=== PATIENT | female | born 1960 | race Caucasian/White ===

== ENCOUNTER → 2017-03-17 18:17 | Outpatient (CLI) | payer MEDICARE ==
[2016-04-14 07:06] VITALS: BMI 45.0
[~2017-03-17 18:17] MED LIST: AMITRIPTYLINE100 MG PO; BYSTOLIC10 MG PO; CARAFATE1 G PO; DONEPEZIL HCL10 M1 PO; GAVISCON LIQUI355 ML PO; KEPPRA750 MG PO; LAMICTAL200 MG PO; MYLANTA / MAALO30 ML PO; PLAVIX75 MG PO; PRILOSEC20 MG PO; REGLAN10 MG PO; SINGULAIR10 MG PO; VIMPAT200 MG PO; VYTORIN 10-801 UDTAB PO; ZANAFLEX4 MG PO; ZANTAC150 MG PO
[2017-03-17 18:53] LABS: BASOPHILS 0.4 % (0-2); EOSINOPHILS 0.6 % (0-7); HEMATOCRIT 46.8 % (36.0-48.0); IMMATURE GRANULOCYTES 0.3 % (0-5); LYMPHOCYTES 32.1 % (15-50); MCH 30.1 pg (26.0-34.0); MCHC 34.2 g/dL (31.0-37.0); MCV 88.1 fL (80.0-100.0); MEAN PLATELET VOLUME 11.5 fL (7.4-10.4); MONOCYTES 9.5 % (2-11); NEUTROPHILS 57.1 % (40-80); PLATELET COUNT 180 10x3/uL (130-400); RBC 5.31 10x6/uL (4.00-5.40); RDW 13.6 % (11.5-14.5); WBC 7.8 10x3/uL (4.8-10.8)
[2017-03-17 19:03] LABS: % SATURATION 23 % (15-55); IRON 78 ug/dl (35-150); TOTAL IRON BIND CAPACITY 329 ug/dl (260-445); UNSAT IRON BIND CAPACITY 251 ug/dl (150-375)
== END | disposition home or self-care (01) ==
LOC: D.LABREF 18:17
PROVIDERS: Internal Medicine Cardiovascular Disease
DX: I25.10 Atherosclerotic heart disease of native coronary artery without angina pectoris (principal); D64.9 Anemia, unspecified

== ENCOUNTER 2018-05-03 17:36 | Emergency (ER) | payer MEDICARE ==
[~2018-05-03] VITALS: Ht 165.1 cm; Wt 116.8 kg
[2018-05-03 17:51] VITALS: Ht 165.1 cm; Wt 116.8 kg
[2018-05-03 20:39] LABS: BASOPHILS 0.1 % (0-2); EOSINOPHILS 2.8 % (0-7); HEMATOCRIT 39.8 % (36.0-48.0); HEMOGLOBIN 13.4 g/dL (12-16); IMMATURE GRANULOCYTES 0.3 % (0-5); LYMPHOCYTES 18.4 % (15-50); MCH 29.5 pg (26.0-34.0); MCHC 33.7 g/dL (31.0-37.0); MCV 87.5 fL (80.0-100.0); MEAN PLATELET VOLUME 10.9 fL (7.4-10.4); MONOCYTES 10.4 % (2-11); PLATELET COUNT 127 10x3/uL (130-400); RBC 4.55 10x6/uL (4.00-5.40); RDW 13.9 % (11.5-14.5); WBC 12.4 10x3/uL (4.8-10.8)
[2018-05-03 20:47] LABS: INR 1.12 (0.85-1.17); PROTIME 13.9 SECONDS (11.6-15.0)
[2018-05-03 20:51] LABS: ALBUMIN 3.9 g/dL (3.4-5.0); ALKALINE PHOSPHATASE 91 U/L (46-116); ALT (SGPT) 36 U/L (10-68); BILIRUBIN - TOTAL 0.88 mg/dL (0.2-1.3); CALC OSMOLALITY 279 mosm/kg (275-300); CALCIUM 8.9 mg/dL (8.5-10.1); CARBON DIOXIDE 29.3 mmol/L (21.0-32.0); CHLORIDE - SERUM 105 mmol/L (98-107); GLUCOSE 95 mg/dL (74-106); POTASSIUM - SERUM 4.1 mmol/L (3.5-5.1); PROTEIN - SERUM 6.6 g/dL (6.4-8.2); SODIUM 141 mmol/L (136-145); UREA NITROGEN 11 mg/dL (7-18); eGFR NON AFRICAN AMERICAN 61 mL/min (90-120)
[2018-05-03 21:00] LABS: CKMB 0.4 U/L (0.0-3.6); CREATINE KINASE 85 UL (21-215)
[2018-05-03] MEDS ORDERED: VALIUM 2 MG TAB2 MG PO (21:24)
[2018-05-03] MEDS ORDERED: ULTRAM50 MG PO (21:24)
[2018-05-03 21:34] VITALS: BP 96/56
== END 2018-05-03 21:34 | disposition home or self-care (01) ==
LOC: D.ER 17:36
PROVIDERS: Family Medicine
DX: S30.1XXA Contusion of abdominal wall, initial encounter (principal); S80.12XA Contusion of left lower leg, initial encounter; V43.52XA Car driver injured in collision with other type car in traffic accident, initial encounter; Y93.89 Activity, other specified; Y92.410 Unspecified street and highway as the place of occurrence of the external cause; S29.011A Strain of muscle and tendon of front wall of thorax, initial encounter; M62.838 Other muscle spasm; I10 Essential (primary) hypertension; K21.9 Gastro-esophageal reflux disease without esophagitis

== ENCOUNTER → 2021-03-01 08:31 | Outpatient (CLI) | payer MEDICARE ==
[2018-05-03 17:51] VITALS: BMI 42.8
[~2021-03-01 08:31] MED LIST changes: +ULTRAM50 MG PO; +VALIUM 2 MG TAB2 MG PO
== END | disposition home or self-care (01) ==
LOC: D.HCCARDIO 08:31
PROVIDERS: ATTEND Internal Medicine Cardiovascular Disease
DX: I25.119 Atherosclerotic heart disease of native coronary artery with unspecified angina pectoris (principal)

== ENCOUNTER 2021-03-04 06:40 | Day surgery (SDC) | payer MEDICARE ==
[~2021-03-04] VITALS: Ht 165.1 cm; Wt 123.4 kg
--- NOTE | ~2021-03-04 | HEMODYNAMI ---
PATIENT:JYOTI GONZALEZ MEDICAL RECORD: [id number] : 62 LOCATION:D.CAT ADMISSION DATE: 03/04/21 Generatedon:19:09 Patient name: JYOTI GONZALEZ Patient #: [id number] SSN: [id number] : 1960 Date of study: 03/04/2021 Page: Of Hemodynamic Procedure Report Patient Data Patient Demographics Procedure consent was obtained First Name: JYOTI Gender: Female Last Name: CARLOS : 1960 [facility] Initial: MALDONADO Age: 60 year(s) Patient #: [id number] Race: SSN: [id number] Additional ID: [id number] Contact details Address: [address] [place] [address] [place] [facility] [place] Zip code: [address] Past Medical History Performed procedures and imaging results Date Procedure Procedure Results Comments 03/01/2021 Stress testing Positive->Intermediate with SPECT MPI risk Allergies Allergen Reaction Date Comments Reported Other allergy 05/27/2015 Codeine, Percocet, PCN, Tylox, Morphine, Tylenol Other allergy 03/04/2021 pcn, codeine, morphine, hydrocodone, oxycodone, tylenol Admission Admission Data Admission Date: 03/04/2021 Admission Time: 6:40 Arrival Date: 04/04/2021 Arrival Time: 0:00 Admit Source: Other Height (in.): 64.96 BSA: 2.25 (m2) Height (cm.): 165 BMI: 45.18 (kg/m2) Weight (lbs.): 271.17 Weight (kg.): 123 Lab Results Lab Result Date: 03/04/2021 Lab Result Time: 0:00 Biochemistry Name Units Result Min Max BUN mg/dl 18 --(---*)-- 7 18 Creatinine mg/dl 1 --(--*-)-- 0.6 1.3 eGFR ml/min 60 *-(----)-- 90 120 NONAFRICAN Procedure Procedure Types Cath Procedure Diagnostic Procedure [facility] Coronaries w/Grafts Sedation Charges Moderate Sedation 25-39 minutes Procedure Description Procedure Date Procedure Date: 03/04/2021 Procedure Start Time: 8:45 Procedure End Time: 9:05 Procedure Staff Name Function Russell Chiu MD Performing Physician Сергей Robison RN Nurse Melo Diaz RN Nurse Mirian Cox RT Scrub Yuly Echeverria RT Monitor Procedure Data Cath Procedure Fluoroscopy Diagnostic fluoroscopy Total fluoroscopy Time: 5.1 time: 5.1 min min Diagnostic fluoroscopy Total fluoroscopy dose: 544 dose: 544 mGy mGy Contrast Material Contrast Material Type Amount (ml) Isovue 370 68 Entry Location Entry Primary Successful Side Size Upsize Upsize Entry Closure Succes sful Closure Location (Fr) 1 (Fr) 2 (Fr) Remarks Device Remarks Femoral Right 5 Fr Exoseal artery Estimated blood loss: 5 ml Diagnostic catheters Device Type Used For End Catheter Placement MULTIPACK JL 4.0 5Fr Procedure catheter MULTIPACK 3DRC 5Fr Procedure catheter DIAGNOSTIC IMT 5Fr Procedure Catheter ([id number]) MULTIPACK Pigtail 5 Fr Procedure catheter Procedure Complications No complications Procedure Medications Medication Administration Route Dosage Oxygen etCO2 Nasal cannula 2 l/min Lidocaine 2% added to field 20 Heparin Flush Bag added to field 2 bags (1000units/500ml NS) 0.9% NaCl I.V. 100 ml/hr Fentanyl I.V. 50 mcg Versed I.V. 1 mg Versed I.V. 1 mg Fentanyl I.V. 50 mcg Fentanyl I.V. 50 mcg Versed I.V. 1 mg Versed I.V. 1 mg Fentanyl I.V. 50 mcg Hemodynamics Rest BSA: 2.25 (m2) O2 Consumption: Estimated: 212.22 (ml/min) O2 Consumption indexed : Estimated:94.32 (ml/min/m) Heart Rate: 68 (bpm) Pressure Samples Time Site Value (mmHg) Purpose Heart Use Rate(bpm) 9:01 LV 90/6,12 Snapshot 73 9:02 AO 93/45(66) Pullback 72 9:02 LV 86/8,-3 Pullback 72 Gradients Valve Time Site 1 Site 2 Mean SEP/DFP Peak To Heart Use (mmHg) (sec/min) Peak Rate (mmHg) (bpm) Aortic 9:02 LV AO 0 4 0 72 86/8,-3 93/45(66) Calculations Valve P-P Mean Valve Index Valve Source Name Gradient Area Flow (cm2) Aortic 0 0 0 0 Snapshots Pre Cath Intra NCS Post Cath Vital Signs Time Heart Resp SPO2 etCO2 NIBP (mmHg) Rhythm Pain Sedation Rate (ipm) (%) (mmHg) Status Level (bpm) 8:17:18 69 17 97 21.2 124/72(90) NSR 0 (11) 10(A) , No pain 8:21:36 70 12 99 36.4 124/74(103) NSR 0 (11) 10(A) , No pain 8:25:54 67 12 96 22 110/50(91) NSR 0 (11) 10(A) , No pain 8:30:08 68 11 96 28.8 124/69(96) NSR 0 (11) 9(A) , No pain 8:34:24 70 11 96 42.5 134/84(113) NSR 0 (11) 9(A) , No pain 8:38:40 71 12 97 0.7 127/72(99) NSR 0 (11) 9(A) , No pain 8:42:52 71 13 97 22.7 116/64(89) NSR 0 (11) 9(A) , No pain 8:47:10 70 12 97 17.4 107/66(85) NSR 0 (11) 9(A) , No pain 8:51:24 70 13 97 13.6 122/68(90) NSR 0 (11) 9(A) , No pain 8:55:38 70 12 97 29.6 129/78(114) NSR 0 (11) 9(A) , No pain 8:59:58 72 13 97 27.3 108/62(88) NSR 0 (11) 9(A) , No pain 9:04:12 72 12 97 23.5 120/68(82) NSR 0 (11) 9(A) , No pain 9:08:28 75 15 98 41.7 126/77(107) NSR 0 (11) 10(A) , No pain Medications Time Medication Route Dose Verified Delivered Reason Notes Effe ctiveness by by 8:15:27 Oxygen etCO2 2 Russell Melo used for Nasal l/min Aram Diaz vegetable preparer cannula 8:15:41 Lidocaine 2% added 20ml Russell Russell for local to vial Aram Chiu MD anesthetic field 8:15:47 Heparin Flush added 2 Russell Russell used for Bag to bags Aram Chiu MD procedure (1000units/500ml field NS) 8:15:58 0.9% NaCl I.V. 100 Russell Russell Per ml/hr Aram Chiu MD physician 8:28:40 Fentanyl I.V. 50 Russell Melo for mcg Aram Diaz RN sedation 8:28:48 Versed I.V. 1 mg Russell Melo for Aram Diaz RN sedation 8:30:54 Versed I.V. 1 mg Russell Melo for Aram Diaz RN sedation 8:31:03 Fentanyl I.V. 50 Russell Melo for mcg Aram Diaz RN sedation 8:34:27 Fentanyl I.V. 50 Russell Melo for mcg Aram Diaz RN sedation 8:34:30 Versed I.V. 1 mg Russell Melo for Aram Diaz RN sedation 8:43:48 Versed I.V. 1 mg Russell Melo for Aram Diaz RN sedation 8:43:52 Fentanyl I.V. 50 Russell Melo for mcg Aram Diaz RN sedation Procedure Log Time Note 7:01:27 Informed consent obtained and on chart 7:01:46 Diagnostic Cath Status : Elective 7:01:57 Admit Source: Other 7:02:00 ACC Patient presents with Stable Angina CCS Anginal Class 2--Slight limitation of ordinary activity. 7:02:03 Procedure Status Elective Heart Cath (OP). 7:02:05 Time tracking: Regular hours (M-F 7:00 - 5:00) 7:02:09 Plan of Care:Hemodynamics will remain stable., Cardiac rhythm will remain stable., Comfort level will be maintained., Respiratory function will remain adequate., Patient/ family verbilizes understanding of procedure., Procedure tolerated without complication., Recovers from procedure without complications.. 7:05:56 Stress Test: yes; abnormal LATERAL SEGMENTS 8:01:44 Patient allergic to Other allergypcn, codeine, morphine, hydrocodone, oxycodone, tylenol 8:01:51 Alarms reviewed by RHector Bowers 8:01:52 Sharps counted by scrub and verified by RHectorN. 8:02:02 H&P Date Dictated: 02/19/2021 Within 30 days and on chart.. 8:02:05 Family in waiting room. 8:02:06 Patient NPO since Midnight. 8:08:23 Сергей Robison RN sent for patient. Start room use. 8:13:04 Patient received from Pre/Post Procedure Room to CCL 1 Alert and oriented. Tansferred to table in Supine position. 8:13:05 Warm blankets applied, and stephanie hugger turned on for patient comfort. 8:13:05 Correct patient and procedure confirmed by team. 8:13:08 Pre-procedure instructions explained to patient. 8:13:09 Pre-op teaching completed and patient verbalized understanding. 8:13:13 Is the patient allergic to Iodine/contrast media? No. 8:13:14 Is patient on blood thinner?No 8:13:16 Patient diabetic? Yes. 8:13:17 If diabetic: On Metformin? Yes 8:13:43 If on Metformin: Last Dose? 03/02/2021 8:13:48 Previous problem with sedation/anesthesia? No ? 8:13:49 Snore? Yes 8:13:50 Sleep apnea? Yes 8:13:51 Deviated septum? No 8:13:56 Opens mouth fully? Yes 8:13:57 Sticks out tongue? Yes 8:14:01 Airway obstruction? Yes ASTHMA 8:14:04 Dentures? No ? 8:14:08 Pre procedure: right dorsailis pedis pulse 1+ Palpable, but thready & weak; easily obliterated 8:14:16 IV patent on arrival in left hand with 0.9% NaCl at O. 8:15:27 Oxygen 2 l/min etCO2 Nasal cannula was administered by Melo Diaz RN; used for procedure; Verbal order read back and verified. 8:15:41 Lidocaine 2% 20ml vial added to field was administered by Russell Chiu MD; for local anesthetic; Verbal order read back and verified. 8:15:47 Heparin Flush Bag (1000units/500ml NS) 2 bags added to field was administered by Russell Chiu MD; used for procedure; Verbal order read back and verified. 8:15:58 0.9% NaCl 100 ml/hr I.V. was administered by Russell Chiu MD; Per physician; Verbal order read back and verified. 8:16:06 Vital chart was started 8:16:13 Lab Result : BUN 18 mg/dl 8:16:14 Lab Result : eGFR NONAFRICAN 60 ml/min 8:16:14 Lab Result : Creatinine 1 mg/dl 8:16:16 Lab results completed and on chart. 8:16:20 Right groin area was prepped with chlora-prep and draped in sterile fashion 8:18:21 Patient Weight : 271.17 lbs 8:18:24 Patient Height : 64.96 inches 8:18:28 Arrival Date: 04/04/2021 12:00:00 AM 8:22:11 Baseline sample Acquired. 8:22:31 Patient pain scale 0/10 ?. 8:22:39 Use device set Femoral Dx 8:22:40 ACIST Syringe (81535) opened to sterile field. 8:22:41 Bag Decanter (2002S) opened to sterile field. 8:22:42 Medline Cath Pack ([id number]) opened to sterile field. 8:22:43 ACIST Hand Control (71772) opened to sterile field. 8:22:43 ACIST Manifold (21716) opened to sterile field. 8:22:44 DIAGNOSTIC Multipack 5Fr catheter set ([id number]) opened to sterile field. 8:22:46 SHEATH 5FR Freehold (SSS249) opened to sterile field. 8:22:46 EMERALD Guide Wire (626-693) opened to sterile field. 8:27:46 Tegaderm 4 x 4 (1626W) opened to sterile field. 8:27:51 --------ALL STOP TIME OUT------ 8:27:52 Final Timeout: patient, procedure, and site verified with staff and physician. All members of the team are in agreement. 8:27:54 Right groin site verified by team. 8:27:57 Fire Safety Assessment: A--An alcohol-based skin anteseptic being used preoperatively., C--Open oxygen or nitrous oxide is being used., D--An ESU, laser, or fiber-optic light is being used. 8:28:02 Physical assessment completed. ASA score P 2 - A patient with mild systemic disease as per Russell Chiu MD. 8:28:04 2) 60-89 Mildly reduced kidney function, and other findings (as for stage 1) point to kidney disease. 8:28:09 Maximum allowable contrast dose (3.7 X eGFR X 0.75)167 ml. 8:28:13 Sedation plan: IV Moderate Sedation Medication:Versed, Fentanyl 8:28:40 Fentanyl 50 mcg I.V. was administered by Melo Diaz RN; for sedation; Verbal order read back and verified. 8:28:48 Versed 1 mg I.V. was administered by Melo Diaz RN; for sedation; Verbal order read back and verified. 8:30:54 Versed 1 mg I.V. was administered by Melo Diaz RN; for sedation; Verbal order read back and verified. 8:31:03 Fentanyl 50 mcg I.V. was administered by Melo Diaz RN; for sedation; Verbal order read back and verified. 8:34:27 Fentanyl 50 mcg I.V. was administered by Melo Diaz RN; for sedation; Verbal order read back and verified. 8:34:30 Versed 1 mg I.V. was administered by Melo Diaz RN; for sedation; Verbal order read back and verified. 8:43:11 Procedure started. 8:43:11 Full Disclosure recording started 8:43:48 Versed 1 mg I.V. was administered by Melo Diaz RN; for sedation; Verbal order read back and verified. 8:43:52 Fentanyl 50 mcg I.V. was administered by Melo Diaz RN; for sedation; Verbal order read back and verified. 8:45:30 Local anesthetic to right femoral artery with Lidocaine 2% by Russell Chiu MD.INITIAL ACCESS ONLY 8:51:39 A 5 Fr sheath was inserted into the Right Femoral artery 8:52:29 A MULTIPACK JL 4.0 5Fr catheter was advanced over the wire and used for Procedure. 8:52:53 LCA angiography performed. 8:52:56 Injector settings: Ml/sec: 3, Volume: 6, 8:54:07 Catheter exchanged over wire. 8:55:01 A MULTIPACK 3DRC 5Fr catheter was advanced over the wire and used for Procedure. 8:55:37 RCA angiography performed. 8:55:39 Injector settings: Ml/sec: 3, Volume: 6, 8:55:53 ACCDominant side:Right 8:55:56 Catheter exchanged over wire. 8:57:36 A DIAGNOSTIC IMT 5Fr Catheter ([id number]) was advanced over the wire and used for Procedure. 8:58:55 RODRIGUES to LAD angiography performed. 8:58:58 Injector settings: Ml/sec: 3, Volume: 6, 8:59:52 Catheter exchanged over wire. 9:00:51 A MULTIPACK Pigtail 5 Fr catheter was advanced over the wire and used for Procedure. 9:01:02 LV gram done using ALAS 9:01:30 LV hemodynamics recorded. 9:01:46 EF : 50 % 9:01:55 Catheter removed. 9:02:13 EXOSEAL 5Fr (EX500) opened to sterile field. 9:02:42 Sheath removed intact; hemostasis achieved with Exoseal to the Right Femoral artery. 9:03:05 Fluoroscopy time 05.10 minutes. 9:03:09 Fluoroscopy dose: 544 mGy 9:03:09 Flurop Dose total: 544 9:03:16 Dose Area Product 03897 mGy/cm. 9:03:22 Contrast amount:Isovue 370 68ml. 9:03:24 Maximum allowable dose exceeded? No. 9:03:25 Sharps counted by scrub and verified by R.N. 9:04:16 Procedure ended.(Physican Out) 9:04:24 Post-op/insertion site Right Femoral artery dressed using a 4 x 4 and Tegaderm. 9:04:29 Post right femoral artery:stable, soft, clean and dry 9:04:31 Post Procedure Pulses reassessed and unchanged 9:04:33 Post procedure: right dorsailis pedis pulse 1+ Palpable, but thready & weak; easily obliterated. 9:04:35 Post-procedure physical assessment completed. ASA score P 2 - A patient with mild systemic disease as per Russell Chiu MD. 9:04:38 Post procedure rhythm: unchanged. 9:04:40 Estimated blood loss: 5 ml 9:04:42 Post procedure instruction explained to patient.Patient verbalizes understanding. 9:04:42 Patient needs reinforcement of post procedure teaching. 9:05:21 Procedure type changed to Cath procedure, Diagnostic procedure, LHC, Coronaries w/Grafts, Sedation Charges, Moderate Sedation 25-39 minutes 9:05:35 Procedure and supply charges have been captured, reviewed, submitted and are correct. 9:05:40 Procedure Complication : No complications 9:05:44 [facility] Findings: mild to moderate CAD (<70%) 9:05:47 Operative report dictated upon procedure completion. 9:05:48 See physician's report for complete and final results. 9:05:49 Report given to Pre/Post Procedure Room. 9:05:53 Patient transfered to Pre/Post Procedure Room with Stretcher. 9:05:55 Procedure ended. 9:05:55 Full Disclosure recording stopped 9:05:58 End room use (Document Last) 9:05:58 End room use (Document Last) 9:06:14 End room use (Document Last) 9:06:29 End room use (Document Last) 9:08:34 Vital chart was stopped Device Usage Item Name Manufacture Quantity Catalog Number Hospital Part Current Minim al Lot# / Charge Number Stock Stock Serial# Code ACIST Acist 1 10256 021755 124307 536247 20 Syringe Medical (04789) Systems Inc Bag Microtek 1 012952 92919 428562 5 Decanter Medical Inc. () Medline Medline 1 [id number] 935937 36162 173690 5 Cath Pack ([id number]) ACIST Hand Acist 1 53310 233033 687939 253220 5 Control Medical (62054) Systems Inc ACIST Acist 1 76867 153973 086841 539810 5 Manifold Medical (54549) Systems Inc DIAGNOSTIC Cardinal 1 [id number] 661085 01138 575940 30 Multipack Health 5Fr catheter set (IM1017) SHEATH 5FR Terumo 1 [id number] 236934 503115 660611 5 Freehold ([id number]) EMERALD Cardinal 1 502-455 754368 086365 519034 5 Guide Wire Health (502455) Tegaderm 4 3M 1 1626W 219473 652738 024908 5 x 4 (1626W) MULTIPACK Cardinal 1 625395 5 JL 4.0 5Fr Health catheter MULTIPACK Cardinal 1 122387 5 3DRC 5Fr Health catheter DIAGNOSTIC [place] 1 [id number] 933730 437787 27224 5 IMT 5Fr Scientific Catheter ([id number]) MULTIPACK Cardinal 1 088695 5 Pigtail 5 Health Fr catheter EXOSEAL 5Fr Cardinal 1 EX500 535166 838137 762676 10 (EX500) Health Signature Audit [place] Stage Time Signature Unsigned Intra-Procedure 03/04/2021 Yuly Echeverria 9:06:15 AM RT(R) Intra-Procedure 03/04/2021 Сергей Robison RN 9:06:29 AM Intra-Procedure 03/04/2021 Russell Chiu MD 9:09:30 AM [place] [id number] [place] [id number]
[~2021-03-04 06:40] MED LIST changes: +LAMICTAL200 M1 PO; -LAMICTAL200 MG PO
[2021-03-04] MEDS ORDERED: ZETIA10 MG PO (07:15)
[2021-03-04] MEDS ORDERED: ZANAFLEX4 MG PO (07:15)
[2021-03-04] MEDS ORDERED: VICTOZA0.6 MG/0.1 SQ (07:16)
[2021-03-04] MEDS ORDERED: OMEPRAZOLE40 MG PO (07:16)
[2021-03-04] MEDS ORDERED: LIPITOR80 MG PO (07:17)
[2021-03-04] MEDS ORDERED: XANAX0.5 MG PO (07:18)
[2021-03-04] MEDS ORDERED: ALBUTEROL SULF8.5 GM INH (07:19)
[2021-03-04] MEDS ORDERED: METFORMIN HCL500 M1 PO (07:19)
[2021-03-04] MEDS ORDERED: NEURONTIN600 MG PO (07:19)
[2021-03-04] MEDS ORDERED: HYDROCODON-ACE1 EA10 PO (07:19)
[2021-03-04] MEDS ORDERED: ZOLOFT100 MG PO (07:20)
[2021-03-04] MEDS ORDERED: PEPCID40 MG PO (07:20)
[2021-03-04 07:52] VITALS: BP 125/71; Ht 165.1 cm; Wt 123.4 kg
[2021-03-04 08:06] LABS: ANION GAP 13.7 mmol/L (8-16); CALCIUM 9.6 mg/dL (8.5-10.1); CHOL - HDL RATIO 2.4 ratio (2.3-4.1); LDL-HDL RATIO 1.1 ratio (1.5-3.5); POTASSIUM - SERUM 3.7 mmol/L (3.5-5.1)
[2021-03-04] MEDS ORDERED: SYMBICORT 16010.2 GM INH (08:06)
[2021-03-04] MEDS ORDERED: CLOTRIMAZOLE-BE30 ML TOPICAL (08:07)
[2021-03-04] MEDS ORDERED: VOLTAREN100 GM TOPICAL (08:07)
[2021-03-04] MEDS ORDERED: ERGOCALCIF50000 UNI1 PO (08:07)
[2021-03-04] MEDS ORDERED: IPRAT-ALBUT 0.5-3 ML UPD (08:08)
[2021-03-04 08:09] LABS: BASOPHILS 0.1 % (0-2); EOSINOPHILS 1.7 % (0-7); HEMATOCRIT 41.4 % (36.0-48.0); HEMOGLOBIN 13.9 g/dL (12-16); IMMATURE GRANULOCYTES 0.4 % (0-5); LYMPHOCYTE ABS# 1.66 10x3/uL (1.18-3.74); LYMPHOCYTES 23.9 % (15-50); MCHC 33.6 g/dL (31.0-37.0); MCV 83.5 fL (80.0-100.0); MONOCYTES 13.1 % (2-11); NEUTROPHIL ABS# 4.23 10x3/uL (1.56-6.13); NEUTROPHILS 60.8 % (40-80); PLATELET COUNT 136 10x3/uL (130-400); RBC 4.96 10x6/uL (4.00-5.40); RDW 14.5 % (11.5-14.5)
--- NOTE | 2021-03-04 09:15 | NUR ---
PT REC'D TO CATH RECOVERY ROOM 12 VIA STRETCHER. MONITORS ESTAB, AT BS. SEE REGISTERED MEDICAL TRANSCRIPTIONIST FLOWSHEETS. ALARMS ON AND C/L IN REACH.
--- NOTE | 2021-03-04 09:15 | NUR ---
PT REC'D TO CATH RECOVERY ROOM 12 VIA STRETCHER. MONITORS ESTAB. AT BS. SEE DRIER AND GRINDER TENDER FLOWSHEETS. ALARMS ON AND C/L IN REACH.
--- NOTE | 2021-03-04 09:30 | NUR ---
PT RESTING QUIETLY, VSS. R GROIN SITE SOFT, NO S/S BLEEDING OR HEMATOMA. R LEG/FOOT WARM WITH PALP PULSES AND BRISK CAP REFILL. PT TAKING SIPS OF WATER WITHOUT DIFFICULTY. ALARMS ON AND C/L IN REACH.
--- NOTE | 2021-03-04 10:15 | NUR ---
R GROIN SITE SOFT, NO S/S BLEEDING OR HEMATOMA. R LEG/FOOT WARM WITH PALP PULSES AND BRISK CAP REFILL. ALARMS ON AND C/L IN REACH.
--- NOTE | 2021-03-04 10:21 | NUR ---
DR. SAN IN TO SEE PT AND UPDATE HER AND HER , ALL QUESTIONS ANSWERED.
--- NOTE | 2021-03-04 10:25 | NUR ---
R GROIN SITE SOFT, C/D/I, NO S/S BLEEDING. HOB ELEVATED, SANDWICH TRAY AND DIET SPRITE PROVIDED. ALARMS ON AND C/L IN REACH.
--- NOTE | 2021-03-04 10:55 | NUR ---
PT TOLERATED DIET, DENIES PAIN OR NEEDS. VSS. R GROIN SITE SOFT, NO S/S BLEEDING OR HEMATOMA. PULSES PALP.
--- NOTE | 2021-03-04 11:07 | NUR ---
ALL DISCHARGE INSTRUCTIONS REVIEWED WITH PT AND HER , INCLUDING RESTRICTIONS, MEDS AND F/U APPT. BOTH VERBALIZE UNDERSTANDING. PIV D/C'D INTACT, DSG APPLIED. PT ALLOWED UP TO GET DRESSED AND GO TO BR INDEPENDENTLY.
--- NOTE | 2021-03-04 11:18 | NUR ---
PT D/C'D VIA W/C TO PRIVATE VEHICLE WITH ALL PAPERWORK AND BELONGINGS.
== END 2021-03-04 11:18 | disposition home or self-care (01) ==
LOC: D.CATH 06:40
PROVIDERS: ATTEND Internal Medicine Cardiovascular Disease
DX: I25.118 Atherosclerotic heart disease of native coronary artery with other forms of angina pectoris (principal); R94.39 Abnormal result of other cardiovascular function study; R06.00 Dyspnea, unspecified; R00.2 Palpitations; I10 Essential (primary) hypertension; E78.5 Hyperlipidemia, unspecified